=== PATIENT | female | born 1980 | race African-American/Black ===

== ENCOUNTER 2016-12-18 23:05 | Outpatient (CLI) | payer SELFPAY ==
[~2016-12-18] VITALS: Ht 165.1 cm; Wt 82.5 kg
[2016-12-19] MEDS ORDERED: ONDANSETRON 4 MG INJ IV ONE (00:46)
[2016-12-19] MEDS ORDERED: LACTATED RINGER'S 1,000 ML IV ONE (01:00)
[2016-12-19 01:12] VITALS: Ht 165.1 cm; Wt 82.5 kg
[2016-12-19 01:13] VITALS: BP 131/75; PULSE 75; RESP 18
[2016-12-19 01:27] LABS: BASOPHIL # 0.1 10^3/ul (0.0-0.1); BASOPHILS % 1.8 % (0.0-2.0); EOSINOPHILS # 0.2 10^3/ul (0.0-0.5); EOSINOPHILS % 2.2 % (0.0-7.0); HEMOGLOBIN 10.3 g/dl (12.0-16.0); LYMPHOCYTES # 1.8 10^3/ul (0.8-2.9); LYMPHOCYTES % 23.6 % (15.0-51.0); MEAN CORPUSCULAR HEMOGLOBIN 26.9 pg (29.0-33.0); MEAN CORPUSCULAR HGB CONC 33.1 g/dl (32.0-37.0); MEAN CORPUSCULAR VOLUME 81.2 fl (82.0-101.0); MEAN PLATELET VOLUME 7.7 fl (7.4-10.4); MONOCYTE # 0.6 10^3/ul (0.3-0.9); MONOCYTES % 7.2 % (0.0-11.0); NEUTROPHIL # 5.1 10^3/ul (1.6-7.5); NEUTROPHILS % 65.2 % (39.0-77.0); PLATELET COUNT 421 10^3/UL (140-440); RED BLOOD COUNT 3.82 10^6/ul (4.20-5.40); RED CELL DISTRIBUTION WIDTH 15.8 % (11.5-14.5); UNCORRECTED WBC 7.8 10^3/ul (4.8-10.8); WHITE BLOOD COUNT 7.8 10^3/ul (4.8-10.8)
[2016-12-19 01:30] LABS: CONDITION 1; LH ANALYZER COMMENTS 1
[2016-12-19] MEDS ORDERED: PANTOPRAZOLE 40 MG INJ IV ONE (01:30)
[2016-12-19 01:38] LABS: ALBUMIN 3.6 g/dl (3.3-4.9)
[2016-12-19 01:39] LABS: POTASSIUM 4.1 mmol/L (3.5-5.1)
[2016-12-19 01:41] LABS: ALBUMIN/GLOBULIN RATIO 1.05; BILIRUBIN,INDIRECT 0.1 mg/dl (0-1.1); BILIRUBIN,TOTAL 0.1 mg/dl (0.2-1.3); CREATININE 0.45 mg/dl (0.44-1.00)
[2016-12-19 01:42] LABS: CALCIUM 9.3 mg/dl (8.4-10.2)
[2016-12-19 01:58] LABS: ADD UMIC NO; URINE BILIRUBIN (Dip) NEGATIVE (NEGATIVE); URINE BLOOD (Dip) NEGATIVE (NEGATIVE); URINE COLOR LT. YELLOW (YELLOW); URINE GLUCOSE (Dip) NEGATIVE (NEGATIVE); URINE KETONES (Dip) NEGATIVE (NEGATIVE); URINE LEUKOCYTE ESTERASE (Dip) NEGATIVE (NEGATIVE); URINE NITRITE (Dip) NEGATIVE (NEGATIVE); URINE TOTAL PROTEIN (Dip) NEGATIVE (NEGATIVE); URINE UROBILINOGEN (Dip) 0.2 E.U./dL (0.1-1.0)
--- NOTE | 2016-12-19 03:15 | RADRPT ---
PROCEDURE: Obstetrical ultrasound, limited. CLINICAL INDICATION: Pelvic pain. TECHNIQUE: Multiple sonographic images of the pelvis were obtained using transabdominal technique . Images were obtained with dodson scale and color Doppler. The images were reviewed on a PACS works tation. COMPARISON: 11/11/2016. FINDINGS: There is a single living intrauterine gestation with the fetus in a vertex presentation. hear t tones of 137 beats per minute are identified. The placenta is posterior in location, grade 2. Th ere is normal amniotic fluid volume with an JEFRY of 9.7 cm. There is no evidence of placenta previa or abruption. IMPRESSION: Single viable intrauterine gestation. Vertex presentation. .Nasir Alas MD, MD Date Time Electronically viewed and signed by .Nasir Alas MD, MD on 12/19/2016 03:14 .T/
--- NOTE | 2016-12-19 05:22 | PN ---
Date/Time of Note Date/Time of Note DATE: 12/19/16 TIME: 05:18 OB Subjective Subjective Subjective 36 yo P1 @ 27.5 wks c/o nausea/vomitting, which she has had the whole , now feels better OB Objective Objective Objective 131/75, 75, 18, 98.4 Abdomen- gravid, n/t FHT- 150's; reactive [place]- no ctx Abdomen: WNL Accelerations: Accelerations Present Decelerations: No Decelerations Contractions on Admission: None OB Assessment/Plan Other Assessment: 36 yo P1 @ 27.5 wks w nausea/vomitting, now feeling better - rx zofran - f/u w Dr. Quezada - d/c ford GILLIAN SYLVESTER MD Dec 19, 2016 05:21
[2016-12-19] MEDS ORDERED: ONDA4TAB8 PO (05:44)
[2016-12-19] MEDS ORDERED: PANT40TA4 PO (05:46)
[2016-12-19] MEDS ORDERED: PANT40TA3 PO (06:02)
== END 2016-12-19 06:40 | disposition home or self-care (01) ==
LOC: OBT 23:05 → L-D 23:05 → OBT 12-19 06:40
PROVIDERS: ATTEND Obstetrics & Gynecology
DX: O21.0 Mild hyperemesis gravidarum (principal); O09.522 Supervision of elderly multigravida, second trimester; Z3A.27 27 weeks gestation of pregnancy
CPT/HCPCS: 36415; 76815; 80053; 81003; 82150; 83690; 85025; 96361; 96365; 96374; 96375; C9113; G0463; J2405; J7120

== ENCOUNTER 2017-01-16 03:58 | Outpatient (CLI) | payer MEDICAID ==
[~2017-01-16] VITALS: Ht 165.1 cm; Wt 82.9 kg
[~2017-01-16 03:58] MED LIST: ONDA4TAB8 PO; PANT40TA3 PO
[2017-01-16 04:31] VITALS: BP 127/88; PULSE 85; RESP 18
[2017-01-16] MEDS ORDERED: ACETAMINOPHEN 500 MG TAB PO ONE (04:52)
[2017-01-16] MEDS ORDERED: OXYCODONE/ACETAMINOPHEN (5/325) TAB PO ONE (06:30)
--- NOTE | 2017-01-16 06:57 | PN ---
Date/Time of Note Date/Time of Note DATE: 01/16/17 TIME: 06:53 OB Subjective Subjective Subjective 36 yo P1 @ [id number] w left sided fibroid, experiencing pain on that side when the baby moves, radiating to the leg No ctx or VB or LOF, good FM OB Objective Objective Objective Nml VS Abdomen- gravid, n/t SVE- deferred FHT- Cat I [place]-no ctx Abdomen: WNL Accelerations: Accelerations Present Decelerations: No Decelerations Varibility: Moderate Contractions on Admission: None OB Assessment/Plan Other Assessment: 36 yo P1 @ 31 wks 5days w some pain when baby is moving, known fibroids Other plan: tylenol did not help the pain percocet given; explained to patient that fibroids grow during and it may be uncomfortable when the baby moves, but there is not much that can be done to treat the pain GILLIAN SYLVESTER MD Jan 16, 2017 06:56
--- NOTE | 2017-01-16 08:23 | RADRPT ---
PROCEDURE: Limited OB ultrasound CLINICAL INDICATION: Contractions TECHNIQUE: Sonographic evaluation to assess the cervical length was performed. Transabdominal patrice ging of the gravid uterus was performed. COMPARISON: No prior exam is available for comparison. FINDINGS: There is a single live intrauterine with cardiac activity, with a heart rate o f 139 bpm. position is breech. The placenta is anterior. The cervix is closed with a length of 4.4 cm. IMPRESSION: 1. The cervix is closed with a length of 4.4 cm. 2. Breech presentation. RPTAT: HH .Liliana Bustillo MD, MD Date Time Electronically viewed and signed by .Liliana Bustillo MD, MD on 01/16/2017 08:22 .G/
[2017-01-16 08:43] LABS: ADD UMIC YES; URINE BILIRUBIN (Dip) NEGATIVE (NEGATIVE); URINE BLOOD (Dip) NEGATIVE (NEGATIVE); URINE COLOR LT. YELLOW (YELLOW); URINE GLUCOSE (Dip) NEGATIVE (NEGATIVE); URINE KETONES (Dip) NEGATIVE (NEGATIVE); URINE LEUKOCYTE ESTERASE (Dip) TRACE (NEGATIVE); URINE NITRITE (Dip) NEGATIVE (NEGATIVE); URINE TOTAL PROTEIN (Dip) NEGATIVE (NEGATIVE); URINE UROBILINOGEN (Dip) 0.2 E.U./dL (0.1-1.0)
[2017-01-16 08:56] LABS: BACTERIA,URINE FEW; URINE RBCS NONE SEEN /HPF (0)
--- NOTE | 2017-01-16 09:25 | TRIAGE ---
OB Triage Datetime Report Generated by CPN: 01/16/2017 09:24 Datetime: 01/16/2017 08:38 Stage of : OB Triage Monitor Mode: External Quality: Mild Resting Tone [place]: Non Relaxed Heart Rate FHR Baseline Rate: 135 Monitor Mode: External US Variability: Moderate 6-25 bpm Accelerations: 15X15 Decelerations: None Category: Category I Pain Assessment Pain Scale: 3 Pain Presence: Constant Pain Location: Right Leg Datetime: 01/16/2017 07:30 Assessment Type: Triage Maternal Assessment Level of Consciousness: Fully Conscious DTR's/Clonus: DTRs 2+; No Clonus Headache: Denies Blurred Vision: No Respiratory Effort: Unlabored; Regular Rhythm; Equal Expansion Breath Sounds, Left: Clear and Equal Breath Sounds, Right: Clear and Equal Nausea/Vomiting: Denies RUQ Epigastric Pain: Denies Lower Extremities Edema: None Upper Extremities Edema: None Facial Edema: None Fall Risk Assessment History of Falling: (0) No Secondary Diagnosis: (0) No Ambulatory Aid: (0) Bedrest/Nurse Assist IV Therapy: (0) No Gait: (0) Normal/Bedrest/Immobile Mental Status: (0) Oriented to Own Ability Fall Score: 0 Fall Risk Score Definition: No Risk: No action required Datetime: 01/16/2017 07:24 Labor Evaluation Frequency: 2-5 Monitor Mode: External Duration (sec)2399: 60-100 Quality: Mild Pattern: Normal: <= 5 Contractions in 10 Minutes Resting Tone [place]: Non Relaxed Heart Rate FHR Baseline Rate: 135 Monitor Mode: External US Variability: Moderate 6-25 bpm Accelerations: 15X15 Decelerations: None Category: Category I Pain Assessment Pain Scale: 3 Pain Presence: Constant Pain Type: Sharp Pain Location: Right Leg Pain Relief Measures: Pain Medication Given; Comfort Measures Datetime: 01/16/2017 07:00 Stage of : OB Triage Labor Evaluation Frequency: 2-5 Monitor Mode: External Duration (sec)2399: 40-50 Quality: Mild Resting Tone [place]: Relaxed Contraction Comments: PT STATES SHE NOW FEELS CONTRACTIONS Heart Rate FHR Baseline Rate: 135 Monitor Mode: External US Variability: Moderate 6-25 bpm Accelerations: 15X15 Decelerations: None Pain Assessment Pain Scale: 6 Pain Presence: Intermittent Pain Type: Sharp Pain Location: Abdomen; Right Groin; Right Leg Pain Relief Measures: Pain Medication Given Datetime: 01/16/2017 06:35 Pain Assessment Pain Scale: 6 Pain Presence: Intermittent Pain Type: Sharp Pain Location: Abdomen; Right Groin; Right Leg Pain Goal: 2 Datetime: 01/16/2017 06:00 Stage of : OB Triage Labor Evaluation Frequency: OCCASIONAL Monitor Mode: External Duration (sec)2399: 40-50 Resting Tone [place]: Relaxed Contraction Comments: PT DENIES FEELING CONTRACTIONS/CRAMPING Heart Rate FHR Baseline Rate: 135 Monitor Mode: External US Variability: Moderate 6-25 bpm Accelerations: 15X15 Decelerations: None Pain Assessment Pain Scale: 6 Pain Presence: Intermittent Pain Type: Sharp Pain Location: Abdomen; Right Groin; Right Leg Pain Relief Measures: Pain Medication Given Pain Assessment Comments: PT STATES TYLENOL DID NOT WORK Datetime: 01/16/2017 05:00 Stage of : OB Triage Labor Evaluation Frequency: IRRITABILITY Monitor Mode: External Resting Tone [place]: Relaxed Contraction Comments: PT DENIES FEELING CONTRACTIONS Heart Rate FHR Baseline Rate: 125 Monitor Mode: External US Variability: Moderate 6-25 bpm Accelerations: 15X15 Decelerations: None Category: Category I Pain Assessment Pain Scale: 6 Pain Presence: Intermittent Pain Type: Sharp Pain Location: Abdomen; Right Groin; Right Leg Pain Relief Measures: Pain Medication Given Datetime: 01/16/2017 04:28 Stage of : OB Triage Maternal Assessment Level of Consciousness: Fully Conscious DTR's/Clonus: DTRs 2+; No Clonus Headache: Denies Blurred Vision: No Respiratory Effort: Unlabored; Regular Rhythm; Equal Expansion Nausea/Vomiting: Denies RUQ Epigastric Pain: Denies Lower Extremities Edema: None Degree: None Upper Extremities Edema: None Degree: None Facial Edema: None Fall Risk Assessment History of Falling: (0) No Secondary Diagnosis: (0) No Ambulatory Aid: (0) Bedrest/Nurse Assist IV Therapy: (0) No Gait: (0) Normal/Bedrest/Immobile Mental Status: (0) Oriented to Own Ability Fall Score: 0 Fall Risk Score Definition: No Risk: No action required Datetime: 01/16/2017 04:27 Time of Arrival: 01/16/2017 03:50 EGA: 31.5 Arrived By: Wheelchair Arrived From: Emergency Dept Chief Complaint: R LATERAL ABDOMINAL PAIN Movement: Present Contractions: Occasional Rupture of Membranes: Denies Vaginal Bleeding: None Vaginal Discharge: Denies Recent Sexual Intercouse: Denies Abdominal Trauma: Not Applicable Patient Complaints: Other Additional Patient Complaints: R SIDE PAIN THAT RADIATES DOWN LEG Time Provider Notified: 01/16/2017 04:44 Provider Notified: DELSHAD Initial Plan: NST; VITAL SIGNS; PAIN RELIEF; PO HYDRATION; UA _ U/S CERVICAL LENGTH Datetime: 01/16/2017 04:09 Monitor Mode: Palpation Resting Tone [place]: Relaxed Contraction Comments: EXTERNAL MONITORS APPLIED Comments: EXTERNAL MONITORS APPLIED Datetime: 12/19/2016 07:00 Arrived By: Wheelchair Arrived From: Emergency Dept Movement: Present Vaginal Bleeding: None Patient Complaints: Other Datetime: 12/19/2016 05:43 Stage of : Antepartum Maternal Assessment Level of Consciousness: Fully Conscious DTR's/Clonus: DTRs 2+; No Clonus Headache: Denies Blurred Vision: No Respiratory Effort: Unlabored; Regular Rhythm; Equal Expansion Breath Sounds, Left: Clear and Equal Breath Sounds, Right: Clear and Equal Nausea/Vomiting: Denies RUQ Epigastric Pain: Denies Facial Edema: None Temperature Route: Axillary Fall Risk Assessment History of Falling: (0) No Secondary Diagnosis: (0) No Ambulatory Aid: (0) Bedrest/Nurse Assist IV Therapy: (0) No Gait: (0) Normal/Bedrest/Immobile Mental Status: (0) Oriented to Own Ability Fall Score: 0 Fall Risk Score Definition: No Risk: No action required Datetime: 12/19/2016 03:30 Stage of : OB Triage Labor Evaluation Frequency: 0/hour Monitor Mode: External Pattern: Normal: <= 5 Contractions in 10 Minutes Resting Tone [place]: Relaxed Heart Rate FHR Baseline Rate: 135 Monitor Mode: External US FHR Baseline Changes: No Baseline Change Variability: Minimal - Undetectable to <=5 bpm Accelerations: 15X15 Decelerations: None Category: Category II Pain Assessment Pain Scale: 0 Pain Presence: None/Denies Pain Type: N/A Datetime: 12/19/2016 02:30 Stage of : OB Triage Labor Evaluation Frequency: 0/hour Monitor Mode: External Pattern: Normal: <= 5 Contractions in 10 Minutes Resting Tone [place]: Relaxed Heart Rate FHR Baseline Rate: 135 Monitor Mode: External US FHR Baseline Changes: No Baseline Change Variability: Minimal - Undetectable to <=5 bpm Accelerations: 15X15 Decelerations: None Category: Category II Pain Assessment Pain Scale: 0 Pain Presence: None/Denies Pain Type: N/A Pain Assessment Comments: Patient denies pain Datetime: 12/19/2016 01:30 Stage of : OB Triage Labor Evaluation Frequency: Irregular Monitor Mode: External Duration (sec)2399: 30-70 Quality: Mild Pattern: Normal: <= 5 Contractions in 10 Minutes Resting Tone [place]: Relaxed Heart Rate FHR Baseline Rate: 130 Monitor Mode: External US FHR Baseline Changes: No Baseline Change Variability: Moderate 6-25 bpm Accelerations: 15X15 Decelerations: None Category: Category I Comments: Periods of minimal variability Pain Assessment Pain Scale: 0 Pain Presence: None/Denies Pain Type: N/A Pain Assessment Comments: Patient denies pain Datetime: 12/19/2016 01:21 Pain Assessment Pain Scale: 0 Pain Presence: None/Denies Pain Type: N/A Pain Assessment Comments: Patient continues to deny pain Datetime: 12/19/2016 00:30 Stage of : OB Triage Maternal Assessment Level of Consciousness: Fully Conscious Labor Evaluation Frequency: None Monitor Mode: External Resting Tone [place]: Relaxed Heart Rate FHR Baseline Rate: 135 Monitor Mode: External US FHR Baseline Changes: No Baseline Change Variability: Moderate 6-25 bpm Accelerations: 15X15 Decelerations: None Category: Category I Pain Assessment Pain Scale: 0 Pain Presence: None/Denies Pain Type: N/A Pain Assessment Comments: Patient denies pain Datetime: 12/18/2016 23:00 Stage of : OB Triage Time of Arrival: 12/19/2016 23:00 EGA: 27.5 Arrived By: Ambulatory Arrived From: Home Chief Complaint: Vomiting blood for 3 weeks Movement: Present Contractions: Irregular Rupture of Membranes: Denies Vaginal Bleeding: None Vaginal Discharge: Denies Recent Sexual Intercouse: Denies Abdominal Trauma: Not Applicable Patient Complaints: Vomiting; Other Additional Patient Complaints: Vomiting blood x1 daily for the last 3 weeks Time Provider Notified: 12/19/2016 02:00 Provider Notified: Roxy Initial Plan: EFM, VSS, CBC CMP, ULTRASOUND FOR JEFRY...REPORT GIVEN TO DR RAMSEY PER PHONE AT 045 5 Maternal Assessment Level of Consciousness: Fully Conscious DTR's/Clonus: DTRs 2+; No Clonus Headache: Denies Blurred Vision: No Respiratory Effort: Unlabored; Regular Rhythm; Equal Expansion Breath Sounds, Left: Clear and Equal Breath Sounds, Right: Clear and Equal Nausea/Vomiting: Denies RUQ Epigastric Pain: Denies Facial Edema: None Fall Risk Assessment History of Falling: (0) No Secondary Diagnosis: (0) No Ambulatory Aid: (0) Bedrest/Nurse Assist IV Therapy: (0) No Gait: (0) Normal/Bedrest/Immobile Mental Status: (0) Oriented to Own Ability Fall Score: 0 Fall Risk Score Definition: No Risk: No action required Datetime: 11/12/2016 00:05 Stage of : OB Triage Datetime: 11/11/2016 23:28 Stage of : OB Triage Datetime: 11/11/2016 23:22 Stage of : OB Triage Datetime: 11/11/2016 23:21 Stage of : OB Triage Datetime: 11/11/2016 22:53 Stage of : OB Triage Datetime: 11/11/2016 22:46 Stage of : OB Triage Datetime: 11/11/2016 22:30 Labor Evaluation Frequency: x1 Monitor Mode: External Duration (sec)2399: 50 Quality: Mild Resting Tone [place]: Relaxed Datetime: 11/11/2016 22:24 Stage of : OB Triage Datetime: 11/11/2016 22:02 Stage of : OB Triage Datetime: 11/11/2016 21:30 Labor Evaluation Frequency: 2 Monitor Mode: External Duration (sec)2399: 40-50 Quality: Mild Resting Tone [place]: Relaxed Datetime: 11/11/2016 20:30 Stage of : OB Triage Labor Evaluation Frequency: 3 Monitor Mode: External Duration (sec)2399: 40-50 Quality: Mild Resting Tone [place]: Relaxed Datetime: 11/11/2016 20:15 Stage of : OB Triage Datetime: 11/11/2016 19:49 Stage of : OB Triage Datetime: 11/11/2016 19:30 Labor Evaluation Frequency: x6 Monitor Mode: External Duration (sec)2399: 40-60 Quality: Mild Resting Tone [place]: Relaxed Datetime: 11/11/2016 18:54 Stage of : OB Triage Datetime: 11/11/2016 18:22 Monitor Mode: External Contraction Comments: TOCO Vaginal Exam Membrane Status: Intact Datetime: 11/11/2016 18:20 Assessment Type: Triage Maternal Assessment Level of Consciousness: Fully Conscious DTR's/Clonus: DTRs 1+; No Clonus Headache: Denies Blurred Vision: No Respiratory Effort: Unlabored Breath Sounds, Left: Clear and Equal Breath Sounds, Right: Clear and Equal Nausea/Vomiting: Denies RUQ Epigastric Pain: Denies Lower Extremities Edema: None Degree: None Upper Extremities Edema: None Degree: None Facial Edema: None Fall Risk Assessment History of Falling: (0) No Secondary Diagnosis: (0) No Ambulatory Aid: (0) Bedrest/Nurse Assist IV Therapy: (0) No Gait: (0) Normal/Bedrest/Immobile Mental Status: (0) Oriented to Own Ability Fall Score: 0 Fall Risk Score Definition: No Risk: No action required Datetime: 11/11/2016 18:18 Heart Rate FHR Baseline Rate: 145 Monitor Mode: Doppler Comments: x 1 minute. FHTs audible between 145 and 170 bts/min Datetime: 11/11/2016 18:10 Time of Arrival: 11/11/2016 18:00 EGA: 22.2 Arrived By: Ambulatory Arrived From: Home Chief Complaint: CRAMPING, pressure Contractions: Irregular Time Contractions Began: 11/11/2016 06:00 Rupture of Membranes: Denies Vaginal Bleeding: None Vaginal Discharge: Denies Recent Sexual Intercouse: Denies Abdominal Trauma: Not Applicable Patient Complaints: Cramping; Other Time Provider Notified: 11/11/2016 19:30 Provider Notified: ROXY Initial Plan: VS, DOPPLER, TOCO, UA, CL, CBC, EFW, JEFRY, IV HYDRATION Datetime: 11/11/2016 18:08 Stage of : OB Triage
== END 2017-01-16 09:17 | disposition home or self-care (01) ==
LOC: OBT 03:58 → L-D 04:00 → OBT 09:17
PROVIDERS: ATTEND Obstetrics & Gynecology
DX: O34.13 Maternal care for benign tumor of corpus uteri, third trimester (principal); D25.9 Leiomyoma of uterus, unspecified; O62.9 Abnormality of forces of labor, unspecified; R10.9 Unspecified abdominal pain; O09.513 Supervision of elderly primigravida, third trimester; Z3A.31 31 weeks gestation of pregnancy
CPT/HCPCS: 76817; 81001; Z7500; Z7610; 81003; G0463

== ENCOUNTER 2017-01-17 16:53 | Inpatient (IN) | payer MEDICAID ==
[~2017-01-17] VITALS: Ht 165.1 cm; Wt 80.3 kg
[2017-01-17 17:07] VITALS: BP 127/72; PULSE 96; RESP 18; Ht 165.1 cm; Wt 80.3 kg
[2017-01-17 17:47] LABS: ADD UMIC YES; URINE BILIRUBIN (Dip) NEGATIVE (NEGATIVE); URINE BLOOD (Dip) NEGATIVE (NEGATIVE); URINE COLOR LT. YELLOW (YELLOW); URINE GLUCOSE (Dip) NEGATIVE (NEGATIVE); URINE KETONES (Dip) 40 (NEGATIVE); URINE LEUKOCYTE ESTERASE (Dip) NEGATIVE (NEGATIVE); URINE NITRITE (Dip) NEGATIVE (NEGATIVE); URINE TOTAL PROTEIN (Dip) NEGATIVE (NEGATIVE); URINE UROBILINOGEN (Dip) 0.2 E.U./dL (0.1-1.0)
[2017-01-17 18:07] LABS: BACTERIA,URINE MODERATE; SQUAMOUS EPITHELIAL CELL,UR MODERATE; URINE RBCS 0-2 /HPF (0)
--- NOTE | 2017-01-17 18:55 | TRIAGE ---
OB Triage Datetime Report Generated by CPN: 01/17/2017 18:54 Datetime: 01/17/2017 18:06 Labor Evaluation Frequency: 2-4.5 Monitor Mode: External Duration (sec)2399: 40-60 Quality: Mild Pattern: Normal: <= 5 Contractions in 10 Minutes Resting Tone [place]: Relaxed Heart Rate FHR Baseline Rate: 140 Monitor Mode: External US FHR Baseline Changes: No Baseline Change Variability: Moderate 6-25 bpm Accelerations: 15X15 Decelerations: None Category: Category I Datetime: 01/17/2017 17:52 Comments: Pt moving on gurney, US reading maternal HR Datetime: 01/17/2017 17:36 Labor Evaluation Frequency: 2-7 Monitor Mode: External Duration (sec)2399: 60-80 Quality: Mild Pattern: Normal: <= 5 Contractions in 10 Minutes Resting Tone [place]: Relaxed Heart Rate FHR Baseline Rate: 145 Monitor Mode: External US FHR Baseline Changes: No Baseline Change Variability: Moderate 6-25 bpm Accelerations: 15X15 Decelerations: None Category: Category I Pain Assessment Pain Scale: 8 Pain Presence: Intermittent Pain Type: Contraction; Pressure Pain Location: Abdomen; Back Pain Goal: 0 Pain Relief Measures: Comfort Measures Pain Assessment Comments: Pt c/o 8/10 pain with contractions Datetime: 01/17/2017 17:10 Assessment Type: Triage Maternal Assessment Level of Consciousness: Fully Conscious DTR's/Clonus: DTRs 2+; No Clonus Headache: Denies Blurred Vision: No Respiratory Effort: Unlabored; Regular Rhythm; Equal Expansion Breath Sounds, Left: Clear and Equal Breath Sounds, Right: Clear and Equal Nausea/Vomiting: Denies RUQ Epigastric Pain: Denies Lower Extremities Edema: None Degree: None Upper Extremities Edema: None Degree: None Facial Edema: None Fall Risk Assessment History of Falling: (0) No Secondary Diagnosis: (0) No Ambulatory Aid: (0) Bedrest/Nurse Assist IV Therapy: (0) No Gait: (0) Normal/Bedrest/Immobile Mental Status: (0) Oriented to Own Ability Fall Score: 0 Fall Risk Score Definition: No Risk: No action required Datetime: 01/17/2017 17:08 Time of Arrival: 01/17/2017 16:47 EGA: 31.6 Arrived By: Wheelchair Arrived From: Emergency Dept Chief Complaint: UC, R side abdominal and back pain Movement: Present Contractions: Irregular Rupture of Membranes: Denies Vaginal Bleeding: None Vaginal Discharge: Denies Recent Sexual Intercouse: Denies Abdominal Trauma: Not Applicable Patient Complaints: Contractions Time Provider Notified: 01/17/2017 17:27 Provider Notified: Delshad Initial Plan: NST, UA _ Urine Culture Datetime: 01/16/2017 07:30 Fall Score: 0 Fall Risk Score Definition: No Risk: No action required Datetime: 01/16/2017 04:28 Fall Score: 0 Fall Risk Score Definition: No Risk: No action required Datetime: 01/16/2017 04:27 EGA: 31.5 Datetime: 12/19/2016 05:43 Fall Score: 0 Fall Risk Score Definition: No Risk: No action required Datetime: 12/18/2016 23:00 EGA: 27.5 Fall Score: 0 Fall Risk Score Definition: No Risk: No action required Datetime: 11/11/2016 18:20 Fall Score: 0 Fall Risk Score Definition: No Risk: No action required Datetime: 11/11/2016 18:10 EGA: 22.2
[2017-01-17 19:11] LABS: ADD SCAN DIFF NO
[2017-01-17 19:14] LABS: BASOPHILS % 0.4 % (0.0-2.0); EOSINOPHILS # 0.1 10^3/ul (0.0-0.5); EOSINOPHILS % 0.9 % (0.0-7.0); HEMATOCRIT 30.2 % (37.0-47.0); HEMOGLOBIN 9.7 g/dl (12.0-16.0); LYMPHOCYTES # 1.7 10^3/ul (0.8-2.9); LYMPHOCYTES % 16.9 % (15.0-51.0); MEAN CORPUSCULAR HEMOGLOBIN 25.6 pg (29.0-33.0); MEAN CORPUSCULAR HGB CONC 32.1 g/dl (32.0-37.0); MEAN CORPUSCULAR VOLUME 79.7 fl (82.0-101.0); MEAN PLATELET VOLUME 8.8 fl (7.4-10.4); MONOCYTE # 0.8 10^3/ul (0.3-0.9); MONOCYTES % 7.5 % (0.0-11.0); NEUTROPHIL # 7.4 10^3/ul (1.6-7.5); NEUTROPHILS % 73.7 % (39.0-77.0); PLATELET COUNT 479 10^3/UL (140-415); RED BLOOD COUNT 3.79 10^6/ul (4.20-5.40); RED CELL DISTRIBUTION WIDTH 15.9 % (11.5-14.5)
[2017-01-17] MEDS: SOD CHLORIDE 0.9% 1,000 ML IV SCH (19:14)
[2017-01-17 19:27] LABS: ALBUMIN 3.5 g/dl (3.3-4.9)
[2017-01-17 19:28] LABS: POTASSIUM 4.2 mmol/L (3.5-5.1)
[2017-01-17 19:30] LABS: ALBUMIN/GLOBULIN RATIO 1.02; BILIRUBIN,INDIRECT 0.2 mg/dl (0-1.1); BILIRUBIN,TOTAL 0.2 mg/dl (0.2-1.3); CREATININE 0.48 mg/dl (0.44-1.00); TOTAL PROTEIN 6.9 g/dl (6.1-8.1)
[2017-01-17 19:31] LABS: CALCIUM 9.9 mg/dl (8.4-10.2); URIC ACID 3.5 mg/dl (3.1-7.9)
[2017-01-17] MEDS: CEFTRIAXONE 1 GM/50 ML (PMX) 50 ML IVPB SCH (20:40)
[2017-01-17] MEDS: ONDANSETRON 4 MG TAB PO SCH (21:22)
--- NOTE | 2017-01-18 01:14 | HP ---
DATE OF ADMISSION: 01/17/2017 CHIEF COMPLAINT: Right-sided abdominal pain and dysuria. HISTORY OF PRESENT ILLNESS: A 36-year-old female 2, para 1, estimated date of delivery 02/16 at 31+ weeks' gestation presented with complaint of right-sided abdominal pain and dysuria. The patient denies any rupture of membranes. Denies any vaginal bleeding, denies nausea or vomiting . PAST MEDICAL HISTORY: Unremarkable. PAST SURGICAL HISTORY: section. ALLERGIES: SHELLFISH. FAMILY HISTORY: Diabetes. PHYSICAL EXAMINATION: VITAL SIGNS: Patient is afebrile. Vital signs stable. HEAD, NECK AND CHEST: Within normal limits. ABDOMEN: Soft, nontender and gravid. BACK: There is right-sided costovertebral angle tenderness. PELVIC: Cervix is closed. EXTREMITIES: Within normal limits. NEUROLOGIC: Within normal limits. IMPRESSION: at 31+ weeks, rule out pyelonephritis. PLAN: Admit, urine culture, intravenous Rocephin. Dictated By: LUCIA RODRIGUEZ/FAIZAN Conf#: [id number] DID#: [id number]
[2017-01-18] MEDS: ACETAMINOPHEN 325 MG TAB PO PRN ×3 (01:54→21:24)
[2017-01-18] MEDS: SOD CHLORIDE 0.9% 1,000 ML IV SCH ×3 (03:01→19:02)
[2017-01-18] MEDS: ONDANSETRON 4 MG TAB PO SCH ×3 (06:00→21:24)
[2017-01-18] MEDS: PANTOPRAZOLE (EC) 40 MG TAB PO SCH (09:14)
[2017-01-18] MEDS: MULTIVIT/MIN/FOLATE/IRON/PREN TAB PO SCH (09:14)
--- NOTE | 2017-01-18 18:38 | QN ---
Documentation Comment Patient feels better. No new complaint. Afebrile VSS Abdomen soft Strip Reactive Continue with IV Rocephin. LUCIA RAMSEY MD Jan 18, 2017 18:37
[2017-01-18] MEDS: CEFTRIAXONE 1 GM/50 ML (PMX) 50 ML IVPB SCH (20:12)
[2017-01-19] MEDS: SOD CHLORIDE 0.9% 1,000 ML IV SCH ×2 (04:48→12:59)
[2017-01-19] MEDS: ONDANSETRON 4 MG TAB PO SCH (06:00)
[2017-01-19] MEDS: PANTOPRAZOLE (EC) 40 MG TAB PO SCH (09:00)
[2017-01-19] MEDS: MULTIVIT/MIN/FOLATE/IRON/PREN TAB PO SCH (09:00)
--- NOTE | 2017-01-20 04:28 | DS ---
DATE OF ADMISSION: 01/17/2017 DATE OF DISCHARGE: 01/19/2017 ADMITTING DIAGNOSIS: at 31+ weeks, rule out pyelonephritis. HISTORY: A 36-year-old female 2, para 1, at 31+ weeks gestation presented with complaint of abdominal pain and dysuria. The patient was admitted on 01/17/2017. After obtaining urine culture , the patient was given intravenous Rocephin. The patient responded well to the management. The ana mckeon is discharged on 01/19/2017. CONDITION ON DISCHARGE: Stable. DISCHARGE INSTRUCTIONS: Diet regular. Activities as tolerated. MEDICATIONS: 1. Keflex 500 p.o. q.i.d. for 10 days. 2. Continue with vitamins and ferrous sulfate. Follow up in the office in 1 week. FINAL DIAGNOSES: 1. , not delivered. 2. Pyelonephritis. Dictated By: LUCIA RODRIGUEZ/NTS Conf#: [id number] DID#: [id number]
== END 2017-01-19 14:55 | disposition home or self-care (01) | DRG 781 ==
LOC: OBT 16:53 → L-D 16:54 → OBT 18:30 → OBG 18:30
PROVIDERS: ADMIT Obstetrics & Gynecology; ATTEND Obstetrics & Gynecology
DX: O23.03 Infections of kidney in pregnancy, third trimester (principal); Z3A.31 31 weeks gestation of pregnancy
CPT/HCPCS: 80053; 81001; 81003; 84560; 85025; 87086; G0463; J0696; J7030

== ENCOUNTER 2017-03-08 10:05 | Inpatient (IN) | payer MEDICAID ==
[~2017-03-08] VITALS: Ht 165.1 cm; Wt 84.5 kg
[2017-03-08 10:45] VITALS: Ht 165.1 cm; Wt 84.5 kg
[2017-03-08 10:46] VITALS: BP 119/83; PULSE 93; RESP 20
[2017-03-08] MEDS ORDERED: LACTATED RINGER'S 1,000 ML IV SCH (10:47)
[2017-03-08] MEDS ORDERED: CARBOPROST 250 MCG INJ IM PRN ×2 (11:00→20:30)
[2017-03-08] MEDS ORDERED: METHYLERGONOVINE 0.2 MG INJ IM PRN ×2 (11:00→20:30)
[2017-03-08] MEDS ORDERED: OXYTOCIN 30 UNITS/LR 500 ML IV PRN ×2 (11:00→20:30)
[2017-03-08] MEDS ORDERED: OXYTOCIN 30 UNITS/LR 500 ML IV SCH (11:00)
[2017-03-08] MEDS ORDERED: MISOPROSTOL 200 MCG TAB PR PRN ×2 (11:00→20:30)
[2017-03-08] MEDS ORDERED: CEFAZOLIN 2 GM/50 ML (PMX) 50 ML IV SCH (11:00)
[2017-03-08 11:12] LABS: ADD SCAN DIFF NO
[2017-03-08 11:24] LABS: BASOPHIL # 0.1 10^3/ul (0.0-0.1); BASOPHILS % 0.6 % (0.0-2.0); EOSINOPHILS # 0.4 10^3/ul (0.0-0.5); EOSINOPHILS % 4.6 % (0.0-7.0); HEMATOCRIT 30.2 % (37.0-47.0); HEMOGLOBIN 9.2 g/dl (12.0-16.0); LYMPHOCYTES # 1.5 10^3/ul (0.8-2.9); LYMPHOCYTES % 18.6 % (15.0-51.0); MEAN CORPUSCULAR HEMOGLOBIN 23.2 pg (29.0-33.0); MEAN CORPUSCULAR HGB CONC 30.5 g/dl (32.0-37.0); MEAN CORPUSCULAR VOLUME 76.1 fl (82.0-101.0); MEAN PLATELET VOLUME 8.8 fl (7.4-10.4); MONOCYTE # 0.5 10^3/ul (0.3-0.9); MONOCYTES % 6.2 % (0.0-11.0); NEUTROPHIL # 5.7 10^3/ul (1.6-7.5); PLATELET COUNT 379 10^3/UL (140-415); RED BLOOD COUNT 3.97 10^6/ul (4.20-5.40); RED CELL DISTRIBUTION WIDTH 17.1 % (11.5-14.5); WHITE BLOOD COUNT 8.3 10^3/ul (4.8-10.8)
[2017-03-08 11:29] LABS: PROTIME 13.2 Sec (12.2-14.2)
[2017-03-08 11:30] LABS: PARTIAL THROMBOPLASTIN TIME 27.3 Sec (25.0-35.0)
--- NOTE | 2017-03-08 13:33 | PREOPHP ---
DATE OF ADMISSION: 03/08/2017 HISTORY OF PRESENT ILLNESS: A 37-year-old female 2, para 1, estimated date of delivery 02/16 at 39 weeks' gestation, admitted for repeat section. PAST MEDICAL HISTORY: Unremarkable. PAST SURGICAL HISTORY: section. ALLERGIES: IODINE. FAMILY HISTORY: Diabetes. PHYSICAL EXAMINATION: VITAL SIGNS: Patient is afebrile. Vital signs stable. HEAD, NECK AND CHEST: Within normal limits. ABDOMEN: Soft, nontender and gravid. EXTREMITIES: Within normal limits. NEUROLOGIC: Within normal limits. IMPRESSION: at 39 weeks with previous section. The patient does not desire tria l of labor. PLAN: Delivery by repeat section. Risks, benefits and alternatives of the procedure were explained to patient. The patient said she understood and gave informed consent for the procedure. Dictated By: LUCIA RODRIGUEZ/FAIZAN Conf#: [id number] DID#: [id number]
[2017-03-08] MEDS ORDERED: OXYTOCIN 30 UNITS/LR 500 ML IV ONE (14:40)
[2017-03-08] MEDS ORDERED: EPHEDrine SULFATE 50 MG/5 ML SYG ONE (14:40)
[2017-03-08] MEDS ORDERED: ONDANSETRON 4 MG INJ ONE (14:41)
[2017-03-08] MEDS ORDERED: METOCLOPRAMIDE 10 MG INJ ONE (14:41)
[2017-03-08] MEDS ORDERED: morphine SULFATE/PF (10 MG/10 ML) INJ ONE (14:41)
[2017-03-08] MEDS ORDERED: OXYTOCIN 10 UNIT INJ ONE (14:41)
[2017-03-08] MEDS ORDERED: MIDAZOLAM 1 MG/ML 2 ML INJ ONE (15:44)
[2017-03-08] MEDS ORDERED: DIPHENHYDRAMINE 50 MG INJ IV PRN (16:00)
[2017-03-08] MEDS ORDERED: morphine SULFATE/PF (10 MG/10 ML) INJ SPINAL ONE (16:00)
[2017-03-08] MEDS ORDERED: morphine 2 MG INJ IV PRN ×2 (16:00)
[2017-03-08] MEDS ORDERED: EPHEDrine SULFATE 50 MG/5 ML SYG IV PRN (16:00)
[2017-03-08] MEDS ORDERED: NALOXONE (0.4 MG/ML) INJ IV PRN (16:00)
[2017-03-08] MEDS ORDERED: ONDANSETRON 4 MG INJ IV PRN (16:00)
[2017-03-08] MEDS ORDERED: HYDROmorphONE 1 MG/ML SYG IV PRN ×2 (16:00)
[2017-03-08] MEDS: KETOROLAC 30 MG INJ IV PRN (17:00)
[2017-03-08 18:39] LABS: ADD SCAN DIFF NO
[2017-03-08 18:41] LABS: BASOPHILS % 0.2 % (0.0-2.0); EOSINOPHILS # 0.1 10^3/ul (0.0-0.5); EOSINOPHILS % 0.4 % (0.0-7.0); HEMATOCRIT 28.2 % (37.0-47.0); HEMOGLOBIN 8.8 g/dl (12.0-16.0); LYMPHOCYTES % 7.3 % (15.0-51.0); MEAN CORPUSCULAR HEMOGLOBIN 24.2 pg (29.0-33.0); MEAN CORPUSCULAR HGB CONC 31.2 g/dl (32.0-37.0); MEAN CORPUSCULAR VOLUME 77.5 fl (82.0-101.0); MEAN PLATELET VOLUME 8.9 fl (7.4-10.4); MONOCYTE # 0.5 10^3/ul (0.3-0.9); MONOCYTES % 3.7 % (0.0-11.0); NEUTROPHIL # 11.8 10^3/ul (1.6-7.5); NEUTROPHILS % 87.7 % (39.0-77.0); PLATELET COUNT 343 10^3/UL (140-415); RED BLOOD COUNT 3.64 10^6/ul (4.20-5.40); RED CELL DISTRIBUTION WIDTH 17.3 % (11.5-14.5); WHITE BLOOD COUNT 13.5 10^3/ul (4.8-10.8)
[2017-03-08 18:47] LABS: ADD UMIC YES; URINE BILIRUBIN (Dip) NEGATIVE (NEGATIVE); URINE BLOOD (Dip) NEGATIVE (NEGATIVE); URINE COLOR LT. YELLOW (YELLOW); URINE GLUCOSE (Dip) NEGATIVE (NEGATIVE); URINE KETONES (Dip) 3+ (NEGATIVE); URINE LEUKOCYTE ESTERASE (Dip) NEGATIVE (NEGATIVE); URINE NITRITE (Dip) NEGATIVE (NEGATIVE); URINE TOTAL PROTEIN (Dip) TRACE (NEGATIVE); URINE UROBILINOGEN (Dip) 0.2 E.U./dL (0.1-1.0)
[2017-03-08 18:54] LABS: POTASSIUM 4.1 mmol/L (3.5-5.1)
[2017-03-08 18:56] LABS: ALBUMIN/GLOBULIN RATIO 0.9; BILIRUBIN,INDIRECT 0.3 mg/dl (0-1.1); BILIRUBIN,TOTAL 0.3 mg/dl (0.2-1.3); CREATININE 0.47 mg/dl (0.44-1.00); TOTAL PROTEIN 6.3 g/dl (6.1-8.1)
[2017-03-08 18:57] LABS: CALCIUM 8.7 mg/dl (8.4-10.2); URIC ACID 4.1 mg/dl (3.1-7.9)
[2017-03-08 19:13] LABS: MUCUS,URINE FEW; SQUAMOUS EPITHELIAL CELL,UR FEW
[2017-03-08 20:25] VITALS: BP 121/71; PULSE 71; RESP 19
[2017-03-08] MEDS ORDERED: OXYCODONE/ACETAMINOPHEN (5/325) TAB PO PRN (20:30)
[2017-03-08] MEDS ORDERED: LANOLIN 7 GM TUBE TOP PRN (20:30)
[2017-03-08 20:40] VITALS: BP 125/81; PULSE 72; RESP 18
[2017-03-08] MEDS: SENNA/DOCUSATE NA (8.6MG/50MG) TAB PO SCH (21:00)
[2017-03-08] MEDS: LACTATED RINGER'S 1,000 ML IV SCH (21:02)
[2017-03-08] MEDS ORDERED: IBUPROFEN 800 MG TAB PO SCH (22:00)
[2017-03-08] MEDS: IBUPROFEN 800 MG TAB PO SCH (22:00)
[2017-03-09] VITALS: BP 129/78; PULSE 80; RESP 18
[2017-03-09 04:00] VITALS: BP 117/72; PULSE 85; RESP 18
[2017-03-09] MEDS: LACTATED RINGER'S 1,000 ML IV SCH ×2 (04:58→12:43)
[2017-03-09] MEDS: KETOROLAC 30 MG INJ IV PRN ×2 (04:59→12:30)
--- NOTE | 2017-03-09 07:21 | OPR ---
DATE OF OPERATION: 03/08/2017 PREOPERATIVE DIAGNOSIS: at 39 weeks with previous section. POSTOPERATIVE DIAGNOSIS: at 39 weeks with previous section. OPERATION PERFORMED: Repeat low transverse section. SURGEON: Lucia Quezada MD LOGISTICS OFFICER: Dr. Edgar ANESTHESIA: Spinal. ANESTHESIOLOGIST: Dr. Pal. PROCEDURE: The patient was taken to the operating room and placed on the operating table. After successful spinal anesthesia was given, the patient was placed in the supine position. The area was prepared and draped in the usual sterile fashion. Spinal anesthesia was tested and was satisfactory. Using a scalpel, Pfannenstiel incision was made about 2 fingerbreadths above the symphysis pubis. The incision was carried to the fascia. The fascia was incised and extended bilaterally with Martinez scissors. Two Kochers were used to separate the fascia from the muscle. The muscle was dissected down to peritoneum. The peritoneum was secured with 2 Kellys and incised with Metzenbaum scissors. Using a scalpel, a small transverse incision was made in the lower segment of the uterus. Upon entering the uterine cavity, bandage scissors were inserted to extend the incision bilaterally, curved up. Baby was delivered from [place] breech presentation. After suctioning clear of amniotic fluid, the baby was handed off to the team in attendance. Apgars were 9 and 9. The placenta was delivered without difficulty. The uterus was closed with #1 Monocryl continuous locked. After assuring hemostasis , both ovaries and tubes were inspected, all looked normal. The peritoneum was closed with 2-0 Vicryl continuous. The fascia was closed with #1 Vicryl continuous in 2 segments. The skin was closed with joel. ESTIMATED BLOOD LOSS: 700 mL. COMPLICATIONS: None. COUNTS: All counts were correct. Dictated By: LUCIA QUEZADA MD GD/NTS Conf#: [id number] DID#: [id number] MTDEsther
[2017-03-09 07:38] LABS: ADD SCAN DIFF NO
[2017-03-09 07:45] VITALS: BP 99/57; PULSE 67; RESP 16
[2017-03-09 07:48] LABS: BASOPHIL # 0.1 10^3/ul (0.0-0.1); BASOPHILS % 0.5 % (0.0-2.0); EOSINOPHILS # 0.2 10^3/ul (0.0-0.5); EOSINOPHILS % 1.9 % (0.0-7.0); HEMATOCRIT 24.8 % (37.0-47.0); HEMOGLOBIN 7.6 g/dl (12.0-16.0); LYMPHOCYTES # 1.3 10^3/ul (0.8-2.9); LYMPHOCYTES % 13.2 % (15.0-51.0); MEAN CORPUSCULAR HEMOGLOBIN 23.6 pg (29.0-33.0); MEAN CORPUSCULAR HGB CONC 30.6 g/dl (32.0-37.0); MEAN PLATELET VOLUME 9.1 fl (7.4-10.4); MONOCYTE # 0.7 10^3/ul (0.3-0.9); MONOCYTES % 6.8 % (0.0-11.0); NEUTROPHIL # 7.7 10^3/ul (1.6-7.5); NEUTROPHILS % 76.7 % (39.0-77.0); PLATELET COUNT 323 10^3/UL (140-415); RED BLOOD COUNT 3.22 10^6/ul (4.20-5.40); RED CELL DISTRIBUTION WIDTH 17.2 % (11.5-14.5)
[2017-03-09] MEDS: OXYTOCIN 30 UNITS/LR 500 ML IV SCH (08:49)
[2017-03-09] MEDS: IBUPROFEN 800 MG TAB PO SCH ×3 (08:50→21:13)
[2017-03-09] MEDS: SENNA/DOCUSATE NA (8.6MG/50MG) TAB PO SCH ×2 (09:53→21:13)
[2017-03-09 12:00] VITALS: BP 110/63; PULSE 80; RESP 16
[2017-03-09 15:30] VITALS: BP 112/62; PULSE 76; RESP 18
[2017-03-09] MEDS: OXYCODONE/ACETAMINOPHEN (5/325) TAB PO PRN (17:34)
--- NOTE | 2017-03-09 19:50 | QN ---
Documentation Comment No complaint Afebrile VSS Abdomen soft NT Stable Ambulate Advance diet. LUCIA RAMSEY MD Mar 09, 2017 19:50
[2017-03-09] MEDS: FERROUS SULFATE (EC) 325 MG TAB PO SCH (21:12)
[2017-03-09 21:15] VITALS: BP 108/62; PULSE 73; RESP 18
[2017-03-10 03:30] VITALS: BP 121/79; PULSE 68; RESP 18
[2017-03-10] MEDS: IBUPROFEN 800 MG TAB PO SCH ×3 (05:23→21:50)
[2017-03-10 08:00] VITALS: BP 142/82; PULSE 72; RESP 18
[2017-03-10] MEDS: FERROUS SULFATE (EC) 325 MG TAB PO SCH ×3 (08:09→20:52)
[2017-03-10] MEDS: SENNA/DOCUSATE NA (8.6MG/50MG) TAB PO SCH ×2 (08:09→20:51)
[2017-03-10] MEDS: OXYCODONE/ACETAMINOPHEN (5/325) TAB PO PRN ×2 (09:20→20:52)
[2017-03-10 19:50] VITALS: BP 128/80; PULSE 66; RESP 16
--- NOTE | 2017-03-10 21:20 | QN ---
Documentation Comment No complaint Afebrile VSS Abdomen soft Stable Continue present care. LUCIA RAMSEY MD Mar 10, 2017 21:20
[2017-03-10] MEDS ORDERED: ONDANSETRON 4 MG TAB PO PRN (22:30)
[2017-03-11 04:00] VITALS: BP 139/83; PULSE 61; RESP 18
[2017-03-11] MEDS: IBUPROFEN 800 MG TAB PO SCH ×2 (05:23→14:00)
--- NOTE | 2017-03-11 06:12 | DS ---
DATE OF ADMISSION: 03/08/2017 DATE OF DISCHARGE: 03/11/2017 ADMITTING DIAGNOSIS: at term with previous section. HISTORY: A 37-year-old female 2, para 1 at the time of admission, para 2 at the time of dis charge, with term was admitted for repeat section on 03/08/2017. After obtaining informed consent, the patient underwent a repeat low transverse section. The patient's op eration was uncomplicated. Postoperatively, the patient was given clear liquid diet which was advan teodoro to regular diet which she tolerated well. The patient discharged on postop day #3 after having had adequate bladder and bowel function. CONDITION ON DISCHARGE: Stable. DISCHARGE INSTRUCTIONS: DIET: Regular. ACTIVITIES: Pelvic rest and no strenuous activities. MEDICATIONS: 1. Motrin as needed for pain. 2. Continue with vitamins. 3. Continue with ferrous sulfate. Follow up in clinic in 1 week. FINAL DIAGNOSES: 1. Term , delivered by section. 2. Previous section. 3. Mother with single liveborn. DISPOSITION: Discharge home. Dictated By: LUCIA RODRIGUEZ/FAIZAN Conf#: [id number] DID#: [id number]
[2017-03-11] MEDS: SENNA/DOCUSATE NA (8.6MG/50MG) TAB PO SCH (08:22)
[2017-03-11 08:23] VITALS: BP 129/73; PULSE 73; RESP 18
[2017-03-11] MEDS: FERROUS SULFATE (EC) 325 MG TAB PO SCH ×2 (08:23→13:00)
[2017-03-11] MEDS ORDERED: DIPHTH/TET/ACEL PERTUSS (ADULT) 0.5 ML VIAL IM* ONE (09:00)
[2017-03-11] MEDS: OXYCODONE/ACETAMINOPHEN (5/325) TAB PO PRN (11:29)
[2017-03-11 14:51] VITALS: BP 123/68; PULSE 76; RESP 18
== END 2017-03-11 18:56 | disposition home or self-care (01) | DRG 766 ==
LOC: L-D 10:05 → PP1 20:25
PROVIDERS: ADMIT Obstetrics & Gynecology; ATTEND Obstetrics & Gynecology
PROC: 10D00Z1 Extraction of Products of Conception, Low, Open Approach (ICD-10-PCS; principal; 2017-03-08 12:30)
DX: O34.211 Maternal care for low transverse scar from previous cesarean delivery (principal); E66.01 Morbid (severe) obesity due to excess calories; Z3A.39 39 weeks gestation of pregnancy; O99.214 Obesity complicating childbirth; Z68.31 Body mass index [BMI] 31.0-31.9, adult; O99.02 Anemia complicating childbirth; Z37.0 Single live birth
CPT/HCPCS: 80053; 81001; 81003; 84560; 85025; 85610; 85730; 86592; 86850; 86900; 86901; 86920; 87340; 90715; 99464; J0690; J1200; J1885; J2250; J2274; J2405; J2590; J2765; J7120

== ENCOUNTER 2018-04-26 15:56 | Emergency (ER) | END 2018-04-26 18:44 | disposition home or self-care (01) ==